=== PATIENT | female | born 1960 | race Caucasian/White ===

== ENCOUNTER → 2017-01-27 | Outpatient (CLI) | payer OTHER ==
--- NOTE | 2017-01-27 10:35 | DI ---
SINUS SERIES, 01/27/2017 8:13 AM: Clinical History: Facial pressure. Previous Exam: None at this facility. 4 routine views are submitted. There is no abnormality of the frontal, ethmoid, maxillary, or sphenoi d sinuses. The petrous pyramids are also normal. Reading: Normal sinus series.
== END ==
LOC: MOB RAD 08:15
PROVIDERS: ATTEND Physician Assistant
DX: J34.89 Other specified disorders of nose and nasal sinuses (principal)
CPT/HCPCS: 70220